=== PATIENT | female | born 2005 | race Caucasian/White ===

== ENCOUNTER 2024-05-23 07:00 | Emergency (ER) | payer MEDICAID, SELFPAY ==
[2024-05-23 07:01] VITALS: BP 152/77; PULSE 99; RESP 18; TEMP 36.6; O2SAT 98; BMI 34.9
--- NOTE | 2024-05-23 07:13 | US_ITS ---
INDICATION: PAIN EXAMINATION: Ultrasound US Abdomen Limited (quadrant) TECHNIQUE: Gutiérrez scale and color doppler imaging was performed of the right upper quadrant. COMPARISON: No relevant prior comparison study available FINDINGS: LIVER: The liver is diffusely echogenic consistent with fatty infiltration. No focal hepatic lesion. There is no free fluid. GALLBLADDER AND BILIARY TREE: No shadowing gallstone, pericholecystic fluid or gallbladder wall thickening is demonstrated. The proximal common bile duct measures 4.9 mm, which is within normal limits for the patient''s age. Songraphic Duarte''s sign: Negative. PANCREAS: No focal abnormality is demonstrated in the head of the pancreas. No pancreatic ductal dilatation. There is nonvisualization of the body and tail the pancreas secondary to overlying bowel gas. RIGHT KIDNEY: The right kidney measures 10.6 cm in length. US/Gallbladder IMPRESSION: Fatty infiltration of the liver. Nonvisualization of the body and tail the pancreas secondary to overlying bowel gas. Electronically Signed: Zenaida Pepper MD at 8:50 EDT ,
--- NOTE | 2024-05-23 07:14 | EX.ED.DYSGE1 ---
HPI History of Present Illness Chief Complaint: Abd Pain Narrative Narrative: Chief complaint and HPI: Epigastric abdominal pain. 18-year-old female with no significant past medical history presents for evaluation of epigastric abdominal pain. Patient states she has been having intermittent pain in this area for several weeks. Noticed that worsens sometimes after eating fatty meals. States the pain worsened yesterday. Endorses spicy foods. Takes ibuprofen once a week. Denies any daily alcohol use. Denies any history of GERD or ulcers. Has diarrhea once a week. Associated symptom is nausea and intermittent burping. Denies any fever, chills, chest pain, shortness of breath, vomiting, dysuria, hematuria. Review of systems: See HPI Medications: As listed on the chart Allergies: As listed on the chart PFSH: Per chart Vital signs: As listed on the chart. Reviewed. Physical exam: Gen: A&O x3, NAD Head: Normocephalic, atraumatic Eyes: No sclera icterus, conjunctiva clear ENT: Moist mucous membranes Neck: Trachea midline, No JVD CV: RRR, no murmurs, no peripheral edema Resp: Lungs CTA BL, no w/r/c GI: Abd soft, non-distended, non-tender, no r/r/g Musc: Full ROM, no deformity Skin: Warm, dry Neuro: Alert, oriented, grossly intact, sensation intact Psych: Cooperative, appropriate [facility]/AdvReac Type Severity Reaction Status Date / Time No Known Allergies Allergy Verified 05/23/24 07:00 EXAM Physical Exam Const Vital Signs: 05/23/24 07:01 Temperature 97.8 F Temperature Source Oral Pulse Rate 99 Respiratory Rate 18 Blood Pressure 152/77 H Blood Pressure Mean 102 Pulse Ox 98 Oxygen Delivery Method Room Air MDM MDM MDM Narrative Medical decision making narrative: 18-year-old female presents for evaluation of epigastric abdominal pain. Differential diagnosis includes but is not limited to gastritis, GERD, PUD, cholelithiasis, cholecystitis, pancreatitis. Morphine, Zofran, Pepcid ordered for symptoms. Will get ultrasound of the gallbladder. Basic labs ordered. Discharge Plan Triage Chief Complaint: Abd Pain ED Provider: Fredy Houston Dx/Rx/DC Orders Print Language: [place]
[2024-05-23] MEDS: Morphine 2 MG/ML Syringe IV (07:27)
[2024-05-23] MEDS: Ondansetron 4 MG/2 ML Vial IV (07:27)
[2024-05-23 07:36] LABS: Bacteria 0 SEEN /hpf (None Seen); Mucous, Urine 0 SEEN /hpf (<or=2+); White Blood Cells 0 SEEN /hpf (0-5)
[2024-05-23 07:43] LABS: Absolute Lymphocyte Count 0.95 X10^3/uL (0.83-4.51); Absolute Neutrophil Count 4.4 X10^3/uL (2.0-7.7); Basophil# 0.03 X10^3/uL; Basophil% 0.5 % (0-1); Eosinophil# 0.08 X10^3/uL; Eosinophils% 1.4 % (0-5); Hematocrit 43.9 % (37-47); Hemoglobin 14.1 g/dL (12.0-15.0); Lymphocyte # 0.95 X10^3/ul (0.83-4.51); Lymphocyte % 16.7 % (19-41); Mean Corp Hgb Conc 32.1 g/dL (32-36); Mean Corpuscular Hgb 27.7 pg (27.0-32.0); Mean Corpuscular Volume 86.2 fL (81-99); Mean Platelet Vol. 9.1 fl (6.2-12.0); Monocyte# 0.24 X10^3/uL; Monocyte% 4.2 % (0-10); NRBC Flagged by Analyzer 0 % (0-5); Neutrophil # 4.35 X10^3/uL (2.7-7.7); Neutrophil % 76.7 % (47-70); Platelet Count 209 K/mm3 (150-450); RBC Distribution Width CV 12.6 % (11.6-14.6); Red Blood Count 5.09 M/mm3 (4.2-5.4); White Blood Count 5.7 K/mm3 (4.4-11.0)
[2024-05-23 07:57] LABS: ALB/GLOB Ratio 1.2 RATIO (0.9-2.4); AST(SGOT) 10 U/L (15-37); Alanine Aminotransfer ALT/SGPT 28 U/L (13-56); Albumin, Serum 3.8 g/dL (3.2-5.0); Alkaline Phosphatase 83 U/L (45-117); Anion Gap 5 (5-15); BUN 13 mg/dL (7-18); BUN/Creat Ratio 15.1 RATIO (10-20); Calcium,Total 8.9 mg/dL (8.5-10.1); Chloride 112 mmol/L (98-107); Color, Urine Yellow (Yellow); Creatinine, Serum 0.86 mg/dL (0.55-1.02); EST Glomerular Filtration Rate 89 mL/min (>60); Est Glom Filt Rate - Afr Amer 108 mL/min (>60); Estimated Creatinine Clearance 120.12 ml/min; Globulin 3.3 g/dL (2.2-4.2); Glucose 98 mg/dL (74-106); Glucose, Dipstick Normal (Normal); Ketone-Dipstick Negative (Negative); Leukocyte Esterase-Dipstick 25 /ul (Negative); Lipase 24 U/L (13-75); Nitrite-Dipstick Negative (Negative); Occult Blood-Urine 10 /ul (Negative); Potassium 3.6 mmol/L (3.5-5.1); Protein, Total 7.1 g/dL (6.4-8.2); Protein-Dipstick 30 mg/dl (Negative); Sodium Level 139 mmol/L (136-145); Specific Gravity, Urine 1.015 (1.002-1.030); Urine Bilirubin Dipstick Negative (Negative); Urine Clarity Clear (Clear); Urine Urobilinogen Normal (Normal)
[2024-05-23 08:05] LABS: Red Blood Cells-Urine 0-5 SEEN /hpf (0-5); Squamous Epithelial Cells - UA 10-25 SEEN /hpf (5-10)
[2024-05-23 08:12] LABS: Internal QC Validated? YES +Cl - CLEAR BKGD; Pregnancy, Urine Negative Negative
[2024-05-23] MEDS: Famotidine 200 MG/20 ML MDV 20 MG in 0.9% Normal Saline (Pres. free 8 ML 300 MG IV (08:20)
[2024-05-23 09:00] VITALS: BP 126/88; PULSE 76; RESP 16; O2SAT 98
[2024-05-23 09:46] VITALS: BP 126/88; PULSE 76; RESP 16; TEMP 36.8; O2SAT 98
== END 2024-05-23 09:47 | disposition home or self-care (01) ==
PROVIDERS: Emergency Provider Surgery; Visit Provider Surgery
DX: R10.13 Epigastric pain (principal); K76.0 Fatty (change of) liver, not elsewhere classified
CPT/HCPCS: 76705; 80053; 81001; 81025; 83690; 85025; 96374; 96375; 99283; A4216; J2405; J3490